=== PATIENT | female | born 1995 | race Hispanic/Latino ===

== ENCOUNTER 2017-06-25 07:44 | Inpatient (IN) | payer MEDICAID, OTHER, SELFPAY ==
[2017-06-25] MEDS ORDERED: Docusate 100 MG CAP PO PRN (08:02)
[2017-06-25] MEDS ORDERED: Acetaminophen 500 MG TAB PO PRN (08:02)
[2017-06-25] MEDS ORDERED: Ondansetron HCl/PF 4 MG/2 ML Vial IVP PRN ×2 (08:02→23:35)
[2017-06-25] MEDS ORDERED: Promethazine HCl 25 MG/ML VIAL IM PRN (08:02)
[2017-06-25] MEDS: Lactated Ringer's 1,000 ML IV SCH ×3 (08:20→18:54)
[2017-06-25 08:44] VITALS: BMI 28.9
[2017-06-25 08:50] LABS: Mean Platelet Volume 8.3 fL (7.4-10.4); Red Blood Cell (RBC) Count 4.34 mill/uL (4.20-5.40); White Blood Cell (WBC) Count 16.3 thou/uL (4.8-10.8)
--- NOTE | 2017-06-25 10:21 | PDOC.LDPN ---
Labor & Delivery Progress Note - Subjective Subjective: comfortable - Objective Vital signs reviewed and normal: yes General: NAD, resting Uterine fundus: non tender SVE: Effacement: 90% Station: 1+ FHT: category 1 AROM: bloody fluid - Assessment (1) Elevated blood pressure reading Code(s): R03.0 - ELEVATED BLOOD-PRESSURE READING, W/O DIAGNOSIS OF HTN Current Visit: Yes Status: Acute Comment: Reviewed [facility]NC records and no hx of BP > 140/90, but had a couple diastolic readings over 90 here so will await results of CMP, CBC, spot pr:cr, UA Plan: continue plan of care (continue q2 SVE, monitoring, pt desires epidural but not yet, explained that if she waits too long she may not be able to receive it in time)
[2017-06-25 11:06] LABS: #Lymphocytes 2.2 thou/uL (1.20-3.40); #Monocytes 0.6 thou/uL (0.11-0.59); #Neutrophils 13.2 thou/uL (1.40-6.50); %Eosinophils 0.1 % (0.0-10.0); %Monocytes 3.5 % (0.0-10.0); Hematocrit 40.3 % (36.0-47.0); Mean Platelet Volume 8.2 fL (7.4-10.4); Red Blood Cell (RBC) Count 4.37 mill/uL (4.20-5.40)
[2017-06-25] MEDS ORDERED: Fentanyl 4 mcg/Marc 0.1% Cadd 100 ML ONE ×2 (11:20→20:30)
[2017-06-25 11:28] LABS: Bilirubin Negative (Negative); Blood, Urine Large (Negative); Glucose, Urine (Dipstick) Negative (Negative); Ketone, Urine Negative (Negative); Nitrite Negative (Negative); Protein, Urine (Dipstick) Trace mg/dL (Neg-Trace); Urobilinogen 0.2 mg/dL (0.2-1.0)
[2017-06-25 11:30] LABS: Bacteria/HPF None Seen HPF (None Seen); Hyaline Casts/LPF 4-6 HYALINE CAST LPF (0-3 Hyaline); RBC/HPF GREATER THAN 50-TNTC HPF (0-3); Squamous Epithelial 0-3 HPF (0-3); WBC/HPF 0-3 HPF (0-3)
[2017-06-25 11:56] LABS: ALT (SGPT) 14 U/L (8-55); AST (SGOT) 26 U/L (5-34); Alkaline Phosphatase 274 U/L (40-150); Anion Gap 16 mmol/L (10-20); BUN (Urea Nitrogen) 9 mg/dL (7.0-18.7); Bilirubin, Total 0.3 mg/dL (0.2-1.2); Calc. Creatinine Clearance 159 mL/min (70-130); Calcium 9.5 mg/dL (7.8-10.44); Carbon Dioxide 17 mmol/L (22-29); Chloride 104 mmol/L (98-107); Estimated GFR-MDRD Greater than 90; Globulin 3.8 g/dL (2.4-3.5); Protein, Total 7.1 g/dL (6.0-8.3)
[2017-06-25] MEDS ORDERED: Fentanyl 100 MCG/2 ML VIAL ONE (12:12)
--- NOTE | 2017-06-25 14:52 | PDOC.LDPN ---
Labor & Delivery Progress Note - Subjective Subjective: comfortable, other - Objective Vital signs reviewed and normal: yes General: NAD, resting Uterine fundus: non tender SVE: 2:30 Dilation: 8 Effacement: 90% Station: 0 FHT: category 1 [place] contractions every: 2-3 minutes Other exam findings: Had some bloody discharge on pad AROM: clear fluid - Assessment (1) Current Visit: Yes Status: Acute Qualifiers: Weeks of gestation: 40 weeks Qualified Code(s): Z3A.40 - 40 weeks gestation of Comment: SVE 8/90/0. Contractions every 2-3 minutes. Assited rupture of membranes performed. Clear fluid noted. Epidural placed and pain being well controlled. Will continue with plan and reassess in a few hours. FHR 120, moderate variability, Accelerations noted. Pt had one noted high BP. All BP since have been normal. Plan: continue plan of care
--- NOTE | 2017-06-25 18:59 | PDOC.LDPN ---
Labor & Delivery Progress Note - Subjective Subjective: comfortable - Objective Vital signs reviewed and normal: yes General: NAD, resting, breathing through contractions Uterine fundus: non tender Dilation: 10 with anterior lip Effacement: 100% Station: 1+ FHT: category 1 [place] contractions every: every four-five minutes - Assessment (1) Active labor at term Code(s): AMD8890 - Current Visit: Yes Status: Acute Plan: continue plan of care, pitocin for augmentation
[2017-06-25] MEDS ORDERED: LR / Pitocin 40 units/1000 ml 40 UNITS/1,000 ML BAG IV SCH (19:00)
[2017-06-25] MEDS ORDERED: LR 500 ML/Oxytocin 10 units 500 ML ONE (19:04)
--- NOTE | 2017-06-25 20:49 | PDOC.LDPN ---
Labor & Delivery Progress Note - Subjective Subjective: comfortable, no concerns - Objective Vital signs reviewed and normal: yes General: NAD, resting, breathing through contractions Uterine fundus: non tender Effacement: 100% Station: 2+ FHT: category 1 [place] contractions every: 2 minutes - Assessment (1) Active labor at term Code(s): [id number] - Current Visit: Yes Status: Acute Plan: continue plan of care, pitocin for augmentation
--- NOTE | 2017-06-25 22:20 | PDOC.LDPN ---
Labor & Delivery Progress Note - Subjective Subjective: comfortable, no concerns - Objective Vital signs reviewed and normal: yes General: NAD, resting Uterine fundus: non tender SVE: 16:45 Dilation: 10 w/ anterior lip Effacement: 100% Station: 1+ FHT: category 1 [place] contractions every: 2-3 minutes - Assessment (1) Current Visit: Yes Status: Acute Qualifiers: Weeks of gestation: 40 weeks Qualified Code(s): Z3A.40 - 40 weeks gestation of Comment: SVE 10/100/+1 w/ anterio lip. Contractions every 2-3 minutes. Assited rupture of membranes performed. Clear fluid noted. Epidural placed and pain being well controlled. Will allow pt to continue to labor down. FHR 140, moderate variability, Accelerations noted. Pt had one noted high BP. All BP since have been normal. Plan: continue plan of care
[2017-06-25] MEDS ORDERED: HYDROcodone/Acetaminophen 5/325 mg Tablet PO PRN (22:27)
[2017-06-25] MEDS ORDERED: Ibuprofen 800 MG TAB PO PRN (22:27)
[2017-06-25] MEDS ORDERED: Carboprost 250 MCG/ML AMP IM PRN (22:27)
[2017-06-25] MEDS ORDERED: LR / Pitocin 40 units/1000 ml 1,000 ML IV PRN (22:27)
[2017-06-25] MEDS ORDERED: Misoprostol 200 MCG TAB PR PRN (22:27)
[2017-06-25] MEDS ORDERED: Lidocaine 1% (PF) 30 ML VIAL SC PRN (22:27)
[2017-06-25] MEDS ORDERED: Bisacodyl 10 MG SUPP PR PRN (23:35)
[2017-06-25] MEDS ORDERED: Preparation H Ointment 28 GM TUBE PR PRN (23:35)
[2017-06-25] MEDS ORDERED: Milk Of Magnesia 30 ML UDCUP PO PRN (23:35)
[2017-06-25] MEDS ORDERED: Lanolin Ointment 7 GM TUBE TOP PRN (23:35)
[2017-06-25] MEDS ORDERED: LR / Pitocin 40 units/1000 ml 1,000 ML IV SCH (23:45)
[2017-06-26] MEDS: Ibuprofen 800 MG TAB PO SCH ×3 (05:28→21:57)
[2017-06-26 05:43] LABS: #Eosinphils 0.1 thou/uL (0.0-0.7); #Lymphocytes 2.9 thou/uL (1.20-3.40); #Monocytes 1.3 thou/uL (0.11-0.59); #Neutrophils 12.6 thou/uL (1.40-6.50); %Basophils 0.2 % (0.0-1.0); %Eosinophils 0.3 % (0.0-10.0); %Lymphocytes 17.4 % (21.0-51.0); %Monocytes 7.4 % (0.0-10.0); Hematocrit 32.9 % (36.0-47.0); Mean Platelet Volume 8.2 fL (7.4-10.4); Red Blood Cell (RBC) Count 3.53 mill/uL (4.20-5.40); White Blood Cell (WBC) Count 16.8 thou/uL (4.8-10.8)
--- NOTE | 2017-06-26 08:47 | PRG ---
DATE OF SERVICE: 06/26/2017 SUBJECTIVE: The patient is doing well, has adequate pain control on the Motrin and is voiding witho ut difficulty. She has normal lochia. She has been . OBJECTIVE: VITAL SIGNS: Temperature 98.9, pulse 92, respiratory rate 20, and blood pressure 131/89. GENERAL: Nontoxic appearing female in no acute distress. ABDOMEN: Soft, nontender, nondistended, no rebound, no guarding. GENITOURINARY: Fundus is firm and below the umbilicus and nontender. ASSESSMENT AND PLAN: day #1, status post spontaneous vaginal delivery. hemat ocrit is 32.9 down from 40.3. The patient is doing well. Routine care.
[2017-06-26] MEDS: Lactated Ringer's 1,000 ML IV SCH ×2 (08:53→13:27)
[2017-06-26] MEDS: Ferrous Sulfate 325 MG TAB PO SCH ×2 (08:53→13:27)
[2017-06-26] MEDS: Docusate (Surfak) 240 MG CAP PO SCH ×2 (08:54→21:57)
[2017-06-26] MEDS: Prenatal Vitamin 1 TAB PO SCH (08:54)
--- NOTE | 2017-06-26 09:43 | PDOC.PP ---
Post Progress Note Post Day #: 1 PO intake tolerated: yes Flatus: no Ambulation: yes Vital Signs (12 hours) Temp Pulse Resp BP Pulse Ox 06/26/17 07:45 97.8 F 84 20 115/68 06/26/17 04:25 98.9 F 92 20 119/76 99 06/26/17 02:08 131/89 06/26/17 01:55 98.6 F 98 20 Weight Weight 67.132 kg - Physical Examination General: NAD Cardiovascular: no m/r/g, RRR Respiratory: clear to ausculation bilateral Abdominal: + bowel sounds, lochia, no distention, appropriately TTP Fundus firm & at: 2 cm below umbilicus Extremities: negative homans (B) Skin: no rash Neurological: no gross focal deficits Psychiatric: normal affect Result Diagrams: 06/26/17 05:27 06/25/17 10:54 Additional Labs: Post Labs Blood Type O POSITIVE 06/25/17 08:20 Hep Bs Antigen Non-Reactive S/CO (NonReactive) 06/25/17 08:20 (1) Status: Acute Qualifiers: Weeks of gestation: 40 weeks Qualified Code(s): Z3A.40 - 40 weeks gestation of Comment: 22 yo G1 at 40.2 wks delivered LORA Grossman at 2251 on 06/25. , ambulating, tolerating po normally. Mom sustained posterolateral vaginal laceration s/p repair. Describes bleeding as just a small amount.
--- NOTE | 2017-06-26 12:28 | DN-2 ---
DATE OF SERVICE: 06/25/2017 CO-SIGNER: Dr. Lacy. VAGINAL DELIVERY NOTE DELIVERING PHYSICIAN: Dr. Katia Wan. ASSISTING PHYSICIAN: Dr. Sourav Johnson. ATTENDING PHYSICIAN: Dr. Lacy. PROCEDURE: Spontaneous vaginal delivery. ANESTHESIA: Epidural. ESTIMATED BLOOD LOSS: 300 mL PREOPERATIVE DIAGNOSIS: Term intrauterine in labor. POSTOPERATIVE DIAGNOSIS: Term intrauterine , delivered. INDICATIONS: A 22-year-old female G1, P0, now P1, presents in active labor. DELIVERY NOTE: This is a 22-year-old female G1, P0, now 1 at 40 weeks 2 days who delivered a viable female at 2251. Following an uneventful antepartum course, a vigorous female was delivered over an intact perineum in the LOP position. Anterior shoulder and then remainder of the body deliv ered. No nuchal cord. The head was held down and mouth and nares were bulb suctioned. Cord clampe d and cut and cord blood collected. Placenta delivered intact with a 3-vessel cord noted. Fundal m assage performed and the fundus was firm. The cervix and vagina were inspected and the vagina was f ound to have 1 laceration and repaired with a 3-[address] suture in the usual fashion with good ap proximation and hemostasis without local anesthetic as the patient had an epidural. went to the nursery in good condition for routine care. Apgars were 9 and 9 at 1 and 5 minutes respectively . The patient tolerated delivery well and went to after routine recovery care.
[2017-06-27] MEDS: Lactated Ringer's 1,000 ML IV SCH ×2 (01:05→08:30)
[2017-06-27] MEDS: Ibuprofen 800 MG TAB PO SCH ×2 (06:11→13:49)
[2017-06-27 07:35] VITALS: BP 121/61; TEMP 98.3
[2017-06-27] MEDS: Ferrous Sulfate 325 MG TAB PO SCH (08:29)
[2017-06-27] MEDS: Prenatal Vitamin 1 TAB PO SCH (09:06)
[2017-06-27] MEDS: Docusate (Surfak) 240 MG CAP PO SCH (09:06)
--- NOTE | 2017-06-27 09:13 | PDOC.PP ---
Post Progress Note Post Day #: 2 PO intake tolerated: yes Flatus: yes Ambulation: yes Vital Signs (12 hours) Temp Pulse Resp BP 06/27/17 07:50 98.3 F 76 20 06/27/17 07:34 98.3 F 76 20 121/61 Weight Weight 67.132 kg - Physical Examination General: NAD Cardiovascular: no m/r/g, RRR Respiratory: clear to ausculation bilateral Abdominal: + bowel sounds, lochia (minimal), no distention, appropriately TTP Fundus firm & at: 1cm below the umbilicus Skin: no rash Neurological: no gross focal deficits Psychiatric: normal affect Result Diagrams: 06/26/17 05:27 06/25/17 10:54 Additional Labs: Post Labs Blood Type O POSITIVE 06/25/17 08:20 Hep Bs Antigen Non-Reactive S/CO (NonReactive) 06/25/17 08:20 (1) Status: Acute Qualifiers: Weeks of gestation: 40 weeks Qualified Code(s): Z3A.40 - 40 weeks gestation of Comment: 22 yo G1 at 40.2 wks delivered TAGA F at 2251 on 06/25. , ambulating, tolerating po normally. Mom sustained posterolateral vaginal laceration s/p repair, minimal bleeding. -pain controlled -Continue PNV -d/c home with outpatient follow-up at [facility].
--- NOTE | 2017-06-27 10:01 | DIS ---
DATE OF ADMISSION: 06/25/2017 DATE OF DISCHARGE: 06/27/2017 ADMITTING DIAGNOSIS: Labor at term. DISCHARGE DIAGNOSIS: Labor at term. PROCEDURE: Term spontaneous vaginal delivery. CONSULTATIONS: None. HOSPITAL COURSE: The patient is a 22-year-old G1 now P1 female who was admitted to the hospital in active labor. She subsequently had an uncomplicated vaginal delivery and was brought to for care. It is now day #2. Patient has had no complaints or complications during her s trey. hemoglobin is 11.1, hematocrit 32.9, and platelets of 147,000. On day of discharge , she has had no complaints. She is tolerating p.o., voiding on her own and having decreased lochia . OBJECTIVE: VITAL SIGNS: Blood pressure is 121/61, temperature 98.3, pulse of 76, and respiratory rate of 20. GENERAL: She appears to be in no acute distress. She is alert and oriented, and cooperative and pl easant to interact with. HEAD: Normocephalic, atraumatic. ABDOMEN: Soft. Fundus is firm. EXTREMITIES: Nontender with minimal edema and symmetrical. The patient will be discharged to home on ibuprofen to be taken p.r.n. for pain. She has been given instructions to follow up at the Clinic in 2 weeks for a routine visit. She monteiro s also been given instructions to seek medical attention sooner if she experiences fever, increasing pain or bleeding or foul discharge or other concerns.
[2017-06-27] MEDS ORDERED: Adacel (T-DAP) 0.5 ML VIAL ONE (15:32)
[2017-06-27] MEDS ORDERED: Bupivacaine 0.25% HCL 30 ML VIAL ONE (16:27)
== END 2017-06-27 16:40 | disposition home or self-care (01) | DRG 775 ==
LOC: L&D/OP 07:44 → L&D 08:27 → 3SW 06-26 02:06
PROVIDERS: ADMIT Obstetrics & Gynecology Obstetrics; ATTEND Obstetrics & Gynecology Obstetrics
PROC: 10E0XZZ Delivery of Products of Conception, External Approach (ICD-10-PCS; principal; 2017-06-25)
PROC: 0KQM0ZZ Repair Perineum Muscle, Open Approach (ICD-10-PCS; 2017-06-25)
PROC: 10907ZC Drainage of Amniotic Fluid, Therapeutic from Products of Conception, Via Natural or Artificial Opening (ICD-10-PCS; 2017-06-25)
DX: O75.89 Other specified complications of labor and delivery (principal); R03.0 Elevated blood-pressure reading, without diagnosis of hypertension; O70.1 Second degree perineal laceration during delivery; Z3A.40 40 weeks gestation of pregnancy; Z37.0 Single live birth
CPT/HCPCS: 36415; 80053; 81003; 81015; 82570; 84156; 85027; 86780; 87340; 90715; J3010; J7120; S0020

== ENCOUNTER 2020-10-06 10:06 | Outpatient (CLI) | payer OTHER ==
[2020-10-06 22:11] LABS: SARS-CoV-2 MS2 Positive; SARS-CoV-2 N Gene Negative; SARS-CoV-2 S Gene Negative; SARS-CoV-2 by NAA Not Detected (NotDetected); SARS-CoV-2 orf1ab Negative
== END 2020-10-06 10:07 | disposition home or self-care (01) ==
LOC: LABBT 10:06
PROVIDERS: ATTEND Student in an Organized Health Care Education/Training Program
DX: Z01.812 Encounter for preprocedural laboratory examination (principal); Z20.822 Contact with and (suspected) exposure to COVID-19
CPT/HCPCS: 87635; U0003

== ENCOUNTER 2020-10-08 19:30 | Inpatient (IN) | payer MEDICAID, OTHER, SELFPAY ==
[~2020-10-08 19:30] MED LIST: Lidocaine 1% (PF) 30 ML VIAL SC PRN; NS / Oxytocin 40 units/1000ml 1,000 ML IV PRN; Ondansetron PF 4 MG/2 ML Vial IVP PRN; Promethazine HCl 25 MG/ML VIAL IM PRN; hydrALAZINE 20 MG/ML VIAL SLOW IVP PRN
[2020-10-09] MEDS: Lactated Ringer's 1,000 ML IV SCH ×3 (00:02→14:33)
[2020-10-09 00:27] LABS: Mean Corpuscular HGB CONC 34.6 g/dL (32.0-36.0); Mean Corpuscular Volume 92.2 fL (78.0-98.0); Platelet Count 174 thou/uL (130-400); RBC Distribution Width 12.2 % (11.5-14.5); Red Blood Cell (RBC) Count 3.75 mill/uL (4.20-5.40); White Blood Cell (WBC) Count 10.2 thou/uL (4.8-10.8)
[2020-10-09 00:35] VITALS: BMI 31.4
[2020-10-09] MEDS ORDERED: NS w/ Oxytocin 30 units 500 ML IVPB SCH ×2 (00:44→00:45)
[2020-10-09 00:59] LABS: HBSAg Index 0.14 S/CO (0-0.99); Hep B Surf Ag Non-Reactive S/CO (NonReactive); Syphilis Antibody Nonreactive (Nonreactive); Syphilis Antibody Index 0.04 S/CO (<1.00 Non-Reactive)
--- NOTE | 2020-10-09 01:34 | PDOC.FPROB ---
FMR OB H&P: HPI - History of Present Illness Chief Complaint: eIOL History of Present Illness: Pt is a 25yo @ 39.2 wks by 8.3 wk sono who presents for eIOL. Hx of autoimmune thyroiditis and is taking levothyroxine. Pt states she is feeling baby move. Denies ctx, LOF, vaginal bleeding/pain. Primary Care Physician: DESTINEE Eldridge FMR OB H&P: Current - Care : 2 Para: 1001 Gestational age: 39.2 wks Due date: 10/13/20 Dating Criteria: 8.3 wk sono Course/Complications: autoimmune thyroiditis - OB Labs Blood type: O RH: positive Antibody Screen: negative HIV: negative RPR: negative HepBsAg: negative Rubella: immune Gonorrhea: negative Chlamydia: negative Pap Smear: LSIL HR HPV + 1 hour gtt: 2 hr 80/128/117 A1c: 5.4 GBS: negative H&H: 11.9/33.8 on 09/03/20 Platelets: 204 Additional labs: TSH 1.04 FMR OB H&P: History - Past Medical History PMH: autoimmune thyroiditis, cleft lip/palate - OB History OB History: , previously had term - MACHINE SKIVER History MACHINE SKIVER History: LSIL, HPV HR + - Surgical History Sx History: cleft lip/palate surgery as a child - Social History Social History: no T/A/D - Family History Family History: mom: HTN, DM FMR OB H&P: Medications - Current Home Medications: Medication Instructions Recorded Confirmed Type Vit No.130/Iron/Folic 1 each PO DAILY 06/23/17 10/09/20 History [ Vitamins] Levothyroxine Sodium 1 tab PO DAILY 10/09/20 10/09/20 History [Levothyroxine] Loratadine [Claritin] 1 tab PO DAILY 10/09/20 10/09/20 History Montelukast Sodium 1 tab PO DAILY 10/09/20 10/09/20 History Allergies/Adverse Reactions: Allergies Allergy/AdvReac Type Severity Reaction Status Date / Time bee venom protein (honey bee) Allergy Verified 10/09/20 00:18 No Known Drug Allergies Allergy Verified 10/09/20 00:18 FMR OB H&P: ROS - Review of Systems General: denies: fever/chills, weight/appetite/sleep changes Eyes: denies: vision changes ENT: denies: nasal congestion, rhinorrhea Cardiovascular: denies: chest pain, edema Respiratory: denies: cough, congestion, shortness of breath Gastrointestinal: denies: abdominal pain, nausea, vomiting, diarrhea Genitourinary (Female): denies: vaginal pain, contractions Musculoskeletal: denies: pain Neurologic: denies: headache Integumentary: denies: rash Endocrine: denies: polyuria Hematologic/Lymphatic: denies: prolonged or excessive bleeding FMR OB H&P: Vital Signs - Maternal Vital signs: 122/75, HR 107 - Heart Tones Baseline: 145 Variability: moderate Acceleration: present Deceleration: absent Category: category 1 [place] contractions every: none FMR OB H&P: Physical Exam - Physical Exam General: NAD, awake, alert and oriented HEENT: normocephalic and atraumatic, grossly normal vision, grossly normal hearing Neck: supple, FROM Heart: RRR, normal S1/S2, no murmurs/rubs/gallops General: CTAB, no respiratory distress, no wheezing Abdomen: soft, gravid, non-tender Musculoskeletal: normal gait and station, pulses present, FROM in all four extremities Neurological: no focal deficit Skin: no rash, capillary refill <2 seconds, no jaundice Lymphatic: no unusual bruising or bleeding Psychiatric: intact recent and remote memory, good judgement and insight, normal mood and affect - Pelvic Exam SVE: 1/thick/high Schaffer score: 3 Membranes: intact Presentation: vertex, confirmed on bedside sono FMR OB H&P: Results - Labs Lab results: Laboratory Results - last 24 hr 10/09/20 10/09/20 10/09/20 00:10 00:10 00:10 WBC 10.2 RBC 3.75 L Hgb 12.0 Hct 34.6 L MCV 92.2 MCH 32.0 H MCHC 34.6 RDW 12.2 Plt Count 174 MPV 8.0 Syphilis IgG/IgM Ab Nonreactive Blood Type O POSITIVE Antibody Screen NEGATIVE FMR OB H&P: A/P Discussion: Date/Time: 10/09/20 0133 25 yo presenting at 39.2wks by 8.3wk sono presenting for eIOL eIOL, sIUP -FHT 145, cat 1 -1/thick/high @0100 -Schaffer 3, will place cytotec -vertex on bedside sono -routine SVE Autoimmune thyroiditis -most recent TSH normal -continue levothyroxine LSIL w/ HPV HR+ -pt prefers colpo @ 6 weeks pp Seasonal allergies w/ eustachian tube dysfunction -continue home meds Hx of Cleft lip/palate -aware This H&P was discussed with Dr. Rivera who agrees with the above documentation and plan. Addendum - Attending - Attending Attestation Date/Time: 10/09/20 [id number] I personally evaluated the patient and discussed the management with Dr. Leach I agree with the History, Examination, Assessment and Plan documented above with any addition or exceptions noted below- 25 yo @ 39.3 weeks here for elective induction. complicated by autoimmune thyroiditis on levothyroxine. Afebrile VSS. SVE 1/thick.high/ pst/soft. Cat 1 FHTs. Seltzer none. A/P: 1) IUP@ 39.3 weeks here for elective induction- Schaffer score=3; will start cytotec for cervical ripening. Reassuring FHTs.
[2020-10-09] MEDS: Misoprostol 100 MCG TAB VAG SCH ×6 (01:59→14:33)
--- NOTE | 2020-10-09 04:47 | PDOC.LDPN ---
Labor & Delivery Progress Note - Subjective Subjective: comfortable - Objective General: NAD SVE: /-3 FHT: category 1, variability present [place] contractions every: none -: 25 yo presenting at 39.2wks by 8.3wk sono presenting for Estefany Mary -FHT 145, cat 1 -1/thick/high @0100 -Schaffer 3, will place cytotec -vertex on bedside sono -routine SVE -/-3 @ 0430, T Cat 1, no ctx, second cytotec placed Autoimmune thyroiditis -most recent TSH normal -continue levothyroxine LSIL w/ HPV HR+ -pt prefers colpo @ 6 weeks pp Seasonal allergies w/ eustachian tube dysfunction -continue home meds Hx of Cleft lip/palate -aware
--- NOTE | 2020-10-09 09:03 | PDOC.LDPN ---
Labor & Delivery Progress Note - Subjective Subjective: comfortable - Objective Vital signs reviewed and normal: yes General: NAD Uterine fundus: non tender SVE: 4/80/0 Dilation: 4 Effacement: 75% Station: 0 FHT: category 1 [place] contractions every: 3-4 min AROM: clear fluid Plan: continue plan of care, pitocin for augmentation -: 25 yo presenting at 39.2wks by 8.3wk sono presenting for eIOL eIOL, sIUP -vertex on bedside sono -1/thick/high @0100, Schaffer 3 - cytotec #1 placed -2/50/-3 @ 0430, T Cat 1, no ctx, cytotec #2 placed -4/80/0 @0850, T Cat 1, Ctx ~3-4min. Suspected AROM of clear fluid with check. -Will start pitocin when contractions space out adequately Autoimmune thyroiditis -most recent TSH normal -continue levothyroxine LSIL w/ HPV HR+ -pt prefers colpo @ 6 weeks pp Seasonal allergies w/ eustachian tube dysfunction -continue home meds Hx of Cleft lip/palate -aware
--- NOTE | 2020-10-09 10:45 | PDOC.LDPN ---
Labor & Delivery Progress Note - Objective Vital signs reviewed and normal: yes General: NAD, breathing through contractions Uterine fundus: non tender SVE: 6.5/90/0 Dilation: 6.5 Effacement: 90% Station: 0 FHT: category 1 [place] contractions every: 4-5 min Plan: continue plan of care -: 25 yo presenting at 39.2wks by 8.3wk sono presenting for eIOL eIOL, sIUP -vertex on bedside sono -1/thick/high @0100, Schaffer 3 - cytotec #1 placed -2/50/-3 @ 0430, T Cat 1, no ctx, cytotec #2 placed -4/80/0 @ 0850, T Cat 1, Ctx ~3-4min. Suspected AROM of clear fluid with check. -6.5/90/0 @ 1030, T Cat 1, Ctx ~4-5min -two DBP 90 greater than 4 hours apart. Will order urine protein and creatinine. Autoimmune thyroiditis -most recent TSH normal -continue levothyroxine LSIL w/ HPV HR+ -pt prefers colpo @ 6 weeks pp Seasonal allergies w/ eustachian tube dysfunction -continue home meds Hx of Cleft lip/palate -aware
[2020-10-09] MEDS ORDERED: Lidocaine 1% (PF) 30 ML VIAL ONE (11:01)
[2020-10-09 11:36] LABS: Creatinine, Urine 41.52 mg/dL (47-110)
--- NOTE | 2020-10-09 11:38 | PDOC.OPDEL ---
OB Operative/Delivery Note Delivery Dr/Surgeon: Wesley/ Pre-Delivery Diagnosis: elective induction Procedure/Post Delivery Dx: spontaneous vaginal delivery Weeks gestation: 39 Anesthesia: local - Additional Findings/Plan Placenta delivered: spontaneous Repaired Obstetrical Laceration: 2nd degree Estimated blood loss: 73mL Compilations/Other Findings: Delivering Physician: Wesley Attending: Procedure: Spontaneous Vaginal Delivery Anesthesia: epidural, Local for Repair EBL: 73 ml Pre-op Diagnosis: 1. Term intrauterine in labor 2. Maternal hx of cleft lip palate, Maternal hx of autoimmune thyroiditis, Maternal hx of eustachian tube dysfunction, Maternal hx of bordler HTN Post-op Diagnosis: 1. Term intrauterine , delivered 2. same as above Indications: A 25y/o female presents presents to L&D for elective induction of labor. Delivery Note: This is 25yo F @ 39.3wks who delivered a viable F at 11:07. Following an uneventful antepartum course, a vigorous female was delivered over an intact perineum in the occipitoanterior position. Anterior Shoulder and then remainder of the body delivered. Body cordx1. The head was held down and mouth and nares were bulb suctioned. Cord clamped and cut and cord blood collected. Placenta delivered intact with a 3 vessel cord noted. Fundal massage was performed and the fundus was firm. The cervix and vagina were inspected. 2nd degree laceration noted and repaired with 3-0 chromic gut in the usual fashion with good approximation and hemostasis after a local anesthetic lidocaine was injected at site. went to nursery in good condition for routine care. Apgars were 9/9 at 1 & 5 minutes, respectively. Patient tolerated delivery well and went to after routine recovery/care. Post delivery plan: routine recovery
[2020-10-09] MEDS ORDERED: Ibuprofen 800 MG TAB PO PRN (11:52)
[2020-10-09] MEDS ORDERED: Benzocaine-Menthol 82.5 ML CAN TOP PRN (13:28)
[2020-10-09] MEDS ORDERED: Adacel (T-DAP) 0.5 ML SYRINGE IM ONE (13:28)
[2020-10-09] MEDS ORDERED: Milk Of Magnesia 30 ML UDCUP PO PRN (13:28)
[2020-10-09] MEDS ORDERED: Lanolin Ointment 7 GM TUBE TOP PRN (13:28)
[2020-10-09] MEDS ORDERED: NS / Oxytocin 40 units/1000ml 1,000 ML IV SCH (13:28)
[2020-10-09] MEDS ORDERED: hydrALAZINE 20 MG/ML VIAL SLOW IVP PRN (13:28)
[2020-10-09] MEDS ORDERED: Preparation H Ointment 28 GM TUBE PR PRN (13:28)
[2020-10-09] MEDS ORDERED: Bisacodyl 10 MG SUPP PR PRN (13:28)
[2020-10-09] MEDS ORDERED: Calcium Gluconate 4.6 MEQ in Sodium Chloride 0.9% 100 ML IVPB PRN (15:05)
[2020-10-09] MEDS ORDERED: Magnesium Sulfate 20 GM/WATER 500 ML BAG IVPB SCH (15:15)
[2020-10-09] MEDS ORDERED: Magnesium Sulfate 20 gm/500 ml 20 GM/500 ML BAG IVPB SCH (15:15)
[2020-10-09] MEDS: Ferrous Sulfate 325 MG TAB PO SCH (16:13)
[2020-10-09] MEDS: Ibuprofen 800 MG TAB PO SCH (22:02)
[2020-10-09] MEDS: Docusate Calcium (SURFAK) 240 MG CAP PO SCH (22:03)
[2020-10-10] MEDS: Ibuprofen 800 MG TAB PO SCH ×2 (05:12→13:52)
--- NOTE | 2020-10-10 06:32 | PDOC.PP ---
Post Progress Note Post Day #: 1 Subjective: Patient is doing well. She denies any pain and says her bleeding is about the same as her period. She has passed gas and wants an IUD for contraception. PO intake tolerated: yes Flatus: yes Ambulation: yes Vital Signs (12 hours) Temp Pulse Resp BP Pulse Ox 10/10/20 05:15 98.7 F 81 16 123/82 10/09/20 23:59 98.1 F 88 16 114/65 10/09/20 19:36 99.0 F 86 16 118/67 97 Weight Weight 73.028 kg - Physical Examination General: NAD Cardiovascular: no m/r/g, RRR Respiratory: clear to auscultation bilaterally Abdominal: + bowel sounds, lochia, appropriately TTP Fundus firm & at: below umbilicus Neurological: no gross focal deficits Psychiatric: A&Ox3, normal affect Result Diagrams: 10/09/20 00:10 Additional Labs: Post Labs Hep Bs Antigen Non-Reactive S/CO (NonReactive) 10/09/20 00:10 Blood Type O POSITIVE 10/09/20 00:10 - Assessment/Plan 25 yo presenting at 39.2wks by 8.3wk sono presenting for eIOL PPD #1 following of LORA Grossman via at 11:07 on 10/09 -pain well controlled -minimal lochia = period -IUD for contraception -passing gas Autoimmune thyroiditis -most recent TSH normal -continue levothyroxine LSIL w/ HPV HR+ -pt prefers colpo @ 6 weeks pp Seasonal allergies w/ eustachian tube dysfunction -continue home meds Hx of Cleft lip/palate -aware Dispo: discharge home today following baby's lab work if appropriate
[2020-10-10] MEDS: Ferrous Sulfate 325 MG TAB PO SCH (08:10)
[2020-10-10] MEDS: Docusate Calcium (SURFAK) 240 MG CAP PO SCH (08:13)
[2020-10-10] MEDS ORDERED: Prenatal Vitamin 1 TAB PO SCH (09:00)
[2020-10-10 11:33] VITALS: BP 119/73; TEMP 98
== END 2020-10-10 16:22 | disposition home or self-care (01) | DRG 807 ==
LOC: L&D 23:11 → 3SW 10-09 13:26
PROVIDERS: ADMIT Student in an Organized Health Care Education/Training Program; ATTEND Student in an Organized Health Care Education/Training Program
PROC: 10E0XZZ Delivery of Products of Conception, External Approach (ICD-10-PCS; principal; 2020-10-09)
PROC: 0KQM0ZZ Repair Perineum Muscle, Open Approach (ICD-10-PCS; 2020-10-09)
PROC: 3E033VJ Introduction of Other Hormone into Peripheral Vein, Percutaneous Approach (ICD-10-PCS; 2020-10-09)
DX: O99.284 Endocrine, nutritional and metabolic diseases complicating childbirth (principal); O70.1 Second degree perineal laceration during delivery; E06.3 Autoimmune thyroiditis; J30.2 Other seasonal allergic rhinitis; H69.90 Unspecified Eustachian tube disorder, unspecified ear; O26.893 Other specified pregnancy related conditions, third trimester; Z37.0 Single live birth; Z3A.39 39 weeks gestation of pregnancy; Z91.030 Bee allergy status
CPT/HCPCS: 36415; 82570; 84156; 85027; 86780; 86850; 86900; 86901; 87340; J2590